=== PATIENT | female | born 1955 | race Caucasian/White ===

== ENCOUNTER 2017-06-30 11:46 | Day surgery (SDC) | payer OTHER ==
[~2017-06-30] VITALS: Ht 172.7 cm; Wt 103.0 kg
[~2017-06-30 11:46] MED LIST: AMOCLA875 PO; COMBIVENT RESPIM4 GM INH; FOOT CREAM; GABA400 PO; HYDCHL12.5; HYDR1TAB94 PO; MONT10T PO; NAPR500 PO; PRAV20; PSEU120ER PO; [UNRECOGNIZED DRUG - OTHER]
[2017-06-30] MEDS ORDERED: Prilosec2.5 MG (12:36)
[2017-06-30] MEDS ORDERED: LEVSOD50 (12:37)
[2017-06-30] MEDS ORDERED: BUDE6HFA (12:38)
[2017-06-30] MEDS ORDERED: Coq-1030 MG (12:39)
== END 2017-06-30 15:30 | disposition home or self-care (01) ==
LOC: ORSCSDS 11:46
PROVIDERS: Internal Medicine Gastroenterology
PROC: 0DB58ZX Excision of Esophagus, Via Natural or Artificial Opening Endoscopic, Diagnostic (ICD-10-PCS; principal; 2017-06-30 14:15)
PROC: 0DBH8ZX Excision of Cecum, Via Natural or Artificial Opening Endoscopic, Diagnostic (ICD-10-PCS; principal; 2017-06-30 14:15)
PROC: 0DBM8ZX Excision of Descending Colon, Via Natural or Artificial Opening Endoscopic, Diagnostic (ICD-10-PCS; principal; 2017-06-30 14:15)
PROC: 0DBN8ZX Excision of Sigmoid Colon, Via Natural or Artificial Opening Endoscopic, Diagnostic (ICD-10-PCS; principal; 2017-06-30 14:15)
PROC: 0DB68ZX Excision of Stomach, Via Natural or Artificial Opening Endoscopic, Diagnostic (ICD-10-PCS; principal; 2017-06-30 14:15)
PROC: 0DBL8ZX Excision of Transverse Colon, Via Natural or Artificial Opening Endoscopic, Diagnostic (ICD-10-PCS; principal; 2017-06-30 14:15)
PROC: 0D758ZZ Dilation of Esophagus, Via Natural or Artificial Opening Endoscopic (ICD-10-PCS; principal; 2017-06-30 14:15)
PROC: 0DBK8ZX Excision of Ascending Colon, Via Natural or Artificial Opening Endoscopic, Diagnostic (ICD-10-PCS; principal; 2017-06-30 14:15)
PROC: 0DBP8ZX Excision of Rectum, Via Natural or Artificial Opening Endoscopic, Diagnostic (ICD-10-PCS; principal; 2017-06-30 14:15)
DX: K21.9 Gastro-esophageal reflux disease without esophagitis (principal); R13.10 Dysphagia, unspecified; K29.70 Gastritis, unspecified, without bleeding; Z86.010 Personal history of colon polyps; K59.00 Constipation, unspecified; D12.2 Benign neoplasm of ascending colon; D12.0 Benign neoplasm of cecum; D12.3 Benign neoplasm of transverse colon; K63.5 Polyp of colon; K62.1 Rectal polyp; K57.30 Diverticulosis of large intestine without perforation or abscess without bleeding; K64.8 Other hemorrhoids; K64.4 Residual hemorrhoidal skin tags; J44.9 Chronic obstructive pulmonary disease, unspecified; Z87.891 Personal history of nicotine dependence; K63.89 Other specified diseases of intestine
CPT/HCPCS: 88305; 88342

== ENCOUNTER → 2018-04-11 | Outpatient (CLI) | payer OTHER ==
[~2018-04-11] MED LIST changes: +BUDE6HFA; +Coq-1030 MG; +LEVSOD50; +Prilosec2.5 MG
== END | disposition home or self-care (01) ==
LOC: LAB SHORT 12:20 → LAB 12:20
DX: R82.998 Other abnormal findings in urine (principal)
CPT/HCPCS: 87077; 87086; 87186

== ENCOUNTER → 2018-10-10 | Outpatient (CLI) | payer OTHER ==
[~2018-10-10] MED LIST changes: +ACETAMINOPHEN-1 EACH PO; +B Complex #11 EACH PO; +BUDE6HFA INH; +CALCIUM + D3 E1 EACH PO; +CLARITIN10 MG PO; +Coq-10100 MG PO; +FOLI400 PO; +Fish Oil 10001000 MG PO; +GABA300 PO; +GLUCOSAMINE HC500 MG PO; +HYDCHL12.5 PO; +IBUP600 PO; +INCRUSE ELLI62.5 MCG INH; +LEVSOD25 PO; +METCAR500 PO; +Omeprazole20 M1 PO; +PRAV20 PO; +PROBIOTIC250 MG PO; +Super Calcium600 MG PO; +VITAMIN D31000 UNIT PO; +Women's Daily1 EACH PO
== END | disposition home or self-care (01) ==
LOC: LAB 12:44 → LAB SHORT 12:44
DX: N39.0 Urinary tract infection, site not specified (principal)
CPT/HCPCS: 87077; 87086; 87186

== ENCOUNTER 2019-04-16 20:12 | Emergency (ER) | payer OTHER ==
[~2019-04-16] VITALS: Ht 172.7 cm; Wt 104.3 kg
[2019-04-16] MEDS ORDERED: Zithromax250 MG PO (21:29)
== END 2019-04-16 21:57 | disposition home or self-care (01) ==
LOC: ER 20:12
DX: J18.9 Pneumonia, unspecified organism (principal); J44.9 Chronic obstructive pulmonary disease, unspecified; Z91.09 Other allergy status, other than to drugs and biological substances; Z79.899 Other long term (current) drug therapy; Z87.891 Personal history of nicotine dependence
CPT/HCPCS: 71046; 87081; 87430; 96372; 99283-25; J0696

== ENCOUNTER 2020-01-10 11:10 | Day surgery (SDC) | payer OTHER ==
[~2020-01-10] VITALS: Ht 170.2 cm; Wt 99.6 kg
[~2020-01-10 11:10] MED LIST changes: +ALBU8HFA2 INH; +BENZ100A PO; +CALCIUM 600 +1 EA11 PO; +COMBIVENT RESPIM4 G1; +INCRUSE ELLIPTA INH; +OMEP20ER PO; +PSEUDOEPHEDRINE30 MG PO; +Robaxin750 MG PO; +SYMBICORT 160-4.6 GM; +TUMERIC; +Zithromax250 MG PO
== END 2020-01-10 14:25 | disposition home or self-care (01) ==
LOC: ORSCSDS 11:10
DX: Z86.010 Personal history of colon polyps (principal); D12.3 Benign neoplasm of transverse colon; D12.2 Benign neoplasm of ascending colon; K63.5 Polyp of colon; K62.1 Rectal polyp; K57.30 Diverticulosis of large intestine without perforation or abscess without bleeding; K64.8 Other hemorrhoids; K63.89 Other specified diseases of intestine; J44.9 Chronic obstructive pulmonary disease, unspecified; Z87.891 Personal history of nicotine dependence; E78.5 Hyperlipidemia, unspecified; E03.9 Hypothyroidism, unspecified; E66.01 Morbid (severe) obesity due to excess calories; Z68.36 Body mass index [BMI] 36.0-36.9, adult; Z79.899 Other long term (current) drug therapy
CPT/HCPCS: 88305; J2704; J7120

== ENCOUNTER 2021-02-12 10:45 | Day surgery (SDC) | payer OTHER ==
[~2021-02-12] VITALS: Ht 170.2 cm; Wt 106.7 kg
[2021-02-12] MEDS ORDERED: ROSU10TA (11:20)
== END 2021-02-12 13:00 | disposition home or self-care (01) ==
LOC: ORSCSDS 10:45
DX: Z12.11 Encounter for screening for malignant neoplasm of colon (principal); Z86.010 Personal history of colon polyps; D12.3 Benign neoplasm of transverse colon; D12.0 Benign neoplasm of cecum; D12.5 Benign neoplasm of sigmoid colon; D12.8 Benign neoplasm of rectum; K57.30 Diverticulosis of large intestine without perforation or abscess without bleeding; K63.89 Other specified diseases of intestine; K64.4 Residual hemorrhoidal skin tags; I10 Essential (primary) hypertension; J44.9 Chronic obstructive pulmonary disease, unspecified; Z87.891 Personal history of nicotine dependence; E78.5 Hyperlipidemia, unspecified; E03.9 Hypothyroidism, unspecified; Z79.899 Other long term (current) drug therapy
CPT/HCPCS: 88305; J2704; J7120

== ENCOUNTER → 2021-06-08 | Outpatient (CLI) | payer OTHER ==
[~2021-06-08] MED LIST changes: +ROSU10TA
== END | disposition home or self-care (01) ==
LOC: LAB SHORT 10:50 → LAB 10:50
DX: N39.0 Urinary tract infection, site not specified (principal)
CPT/HCPCS: 87077; 87086; 87186

== ENCOUNTER → 2021-11-22 | Outpatient (CLI) | payer OTHER | END | disposition home or self-care (01) | LOC: PLD 11:08 → LAB SHORT 11:08 → LAB 11:08 | DX: D22.72 Melanocytic nevi of left lower limb, including hip (principal); D22.0 Melanocytic nevi of lip | CPT/HCPCS: 88305 ==

== ENCOUNTER → 2021-11-25 | Outpatient (CLI) | payer OTHER | END | disposition home or self-care (01) | LOC: LAB SHORT 15:46 → LAB 15:46 | DX: R30.0 Dysuria (principal) | CPT/HCPCS: 87077; 87086; 87186 ==

== ENCOUNTER → 2022-10-24 | Outpatient (CLI) | payer MEDICARE ==
[2022-10-24 12:58] LABS: BASOPHILS ABSOLUTE AUTO 0.03 K/mm3 (0.00-0.23); BASOPHILS PERCENT AUTO 1 % (0-2); EOSINOPHILS ABSOLUTE AUTO 0.09 K/mm3 (0.00-0.68); EOSINOPHILS PERCENT AUTO 1 % (0-6); Hematocrit 43.9 % (33.0-51.0); Hemoglobin 14.3 g/dL (11.5-16.0); IMMATURE GRAN ABSOLUTE AUTO 0.02 K/mm3 (0.00-0.10); IMMATURE GRAN PERCENT AUTO 0 % (0-1); LYMPHOCYTES ABSOLUTE AUTO 1.53 K/mm3 (0.84-5.20); LYMPHOCYTES PERCENT AUTO 24 % (21-46); MONOCYTES ABSOLUTE AUTO 0.59 K/mm3 (0.16-1.47); MONOCYTES PERCENT AUTO 9 % (4-13); Mean Corpuscular HGB 30.8 pg (26.0-34.0); Mean Corpuscular HGB Conc 32.6 g/dL (31.5-36.5); Mean Corpuscular Volume 94 fL (80-100); NEUTROPHILS ABSOLUTE AUTO 4.02 K/mm3 (1.96-9.15); NEUTROPHILS PERCENT AUTO 64 % (41-73); Platelet Count 331 K/mm3 (150-400); RDW Coefficient Variation 14.1 % (11.7-14.2); Red Blood Cell Count 4.65 M/mm3 (3.80-5.20); White Blood Cell Count 6.28 K/mm3 (4.00-11.30)
[2022-10-24 14:24] LABS: Alanine Aminotransfer (ALT/SGP 40 U/L (12-78); Albumin, Blood 4.1 g/dL (3.4-5.0); Albumin/Globulin Ratio 1.4 (0.8-1.8); Alk Phos 59 U/L (50-136); Anion Gap 8 mmol/L (6-16); Aspartate Aminotrans (AST/SGOT 27 U/L (12-37); Bilirubin, Total 0.3 mg/dL (0.1-1.0); Blood Urea Nitrogen 15 mg/dL (8-24); Bun/Creatinine Ratio 12.2 (12.0-20.0); CHOL/HDL RATIO 2.5; CO2, Blood 29 mmol/L (21-32); Calcium, Blood 10.3 mg/dL (8.5-10.1); Chloride, Blood 103 mmol/L (98-108); Cholesterol 153 mg/dL (50-200); Creatinine, Blood 1.23 mg/dL (0.40-1.00); Globulin, Blood 2.9 g/dL (2.2-4.0); Glomerular Filtration Rate 49 (60-); Glucose, Blood 108 mg/dL (70-99); HDL Cholesterol 62 mg/dL (>39); LDL/HDL RATIO 1.2; Low Density Lipoprotein Chol 76 mg/dL (0-110); Potassium, Blood 4.3 mmol/L (3.5-5.5); Sodium, Blood 140 mmol/L (136-145); Triglycerides 74 mg/dL (30-160); Very Low Density Lipoprot Chol 14 mg/dL (6-32)
[2022-10-25 07:21] LABS: HEMOGLOBIN A1C 5.7 % (4.8-5.6)
== END ==
LOC: LAB 09:25 → LAB SHORT 09:25
PROVIDERS: Hospitalist
DX: E78.49 Other hyperlipidemia (principal); R68.82 Decreased libido; R73.03 Prediabetes; Z78.0 Asymptomatic menopausal state
CPT/HCPCS: 80053; 80061; 82670; 83036; 85025

== ENCOUNTER → 2023-04-18 | Outpatient (CLI) | payer MEDICARE | END | disposition home or self-care (01) | LOC: LAB SHORT 15:23 → LAB 15:23 | DX: N39.0 Urinary tract infection, site not specified (principal) | CPT/HCPCS: 87077; 87086; 87186 ==

== ENCOUNTER → 2024-01-12 | Outpatient (CLI) | payer MEDICARE ==
[~2024-01-12] MED LIST changes: +ALDACTONE100 MG; +FISH OIL 1,0001 EA10; +Hair, Skin & N1 EACH; +Robaxin750 MG; +TACR1
[2024-01-21 15:41] LABS: HPV HIGH RISK BY TMA Not Detected; HPV SOURCE Cervical/Vag
== END | disposition home or self-care (01) ==
LOC: LAB 17:31 → LAB SHORT 17:31
PROVIDERS: Obstetrics & Gynecology
DX: Z01.419 Encounter for gynecological examination (general) (routine) without abnormal findings (principal)
CPT/HCPCS: 87624; G0123

== ENCOUNTER 2024-07-23 13:33 | Day surgery (SDC) | payer MEDICARE ==
[~2024-07-23] VITALS: Ht 170.2 cm; Wt 87.8 kg
[~2024-07-23 13:33] MED LIST changes: +Lidocaine 2% 5 ML SDV ONE; +Lidocaine HCl/Pf 1% 5 ML VIAL ONE
[2024-07-23] MEDS ORDERED: ASPI81CH PO (13:59)
[2024-07-23] MEDS ORDERED: CO Q10100 MG (13:59)
[2024-07-23] MEDS ORDERED: GLUC500 PO (14:00)
[2024-07-23] MEDS ORDERED: POTASSIUM GLUCO90 M1 PO (14:02)
[2024-07-23] MEDS ORDERED: MAGNESIUM OXID500 MG (14:02)
[2024-07-23] MEDS ORDERED: Lactated Ringer's 1,000 ML IV ONE (14:26)
[2024-07-23] MEDS ORDERED: propofoL 50 ML IV ONE (14:41)
[2024-07-23 15:43] VITALS: BP 115/67
== END 2024-07-23 15:53 | disposition home or self-care (01) ==
LOC: ORSCSDS 13:33
PROVIDERS: Specialist
PROC: 0DBK8ZX Excision of Ascending Colon, Via Natural or Artificial Opening Endoscopic, Diagnostic (ICD-10-PCS; principal; 2024-07-23 15:00)
DX: Z12.11 Encounter for screening for malignant neoplasm of colon (principal); Z86.0100 Personal history of colon polyps, unspecified; D12.2 Benign neoplasm of ascending colon; K63.89 Other specified diseases of intestine; K57.30 Diverticulosis of large intestine without perforation or abscess without bleeding; K64.8 Other hemorrhoids; I25.10 Atherosclerotic heart disease of native coronary artery without angina pectoris; I10 Essential (primary) hypertension; E78.2 Mixed hyperlipidemia; D86.0 Sarcoidosis of lung; J44.9 Chronic obstructive pulmonary disease, unspecified; Z79.899 Other long term (current) drug therapy; Z87.891 Personal history of nicotine dependence
CPT/HCPCS: 88305; J2003; J2704

== ENCOUNTER 2024-10-01 06:13 | Day surgery (SDC) | payer MEDICARE ==
[~2024-10-01] VITALS: Ht 170.2 cm; Wt 89.3 kg
[~2024-10-01 06:13] MED LIST changes: +ACET500 PO; -ALDACTONE100 MG; +ALDACTONE100 MG PO; +ANORO ELLIPTA1 EACH INH; +ASPI81CH PO; +C COMPLEX1000 M1 PO; +CELE200 PO; +CO Q10100 MG; +CeFAZolin Sodium 2,000 MG VIAL ONE; +Coenzyme Q1050 MG PO; +FOLIC ACID PO; +GLUC500 PO; +GLUCOSAMINE COMPLEX PO; -Lidocaine 2% 5 ML SDV ONE; -Lidocaine HCl/Pf 1% 5 ML VIAL ONE; +MAGNESIUM OXID500 MG; +METAMUCIL PO; +Methocarbamol500 MG PO; +POTASSIUM GLUCO90 M1 PO; +POTASSIUM GLUCONATE PO; +PSEUDOEPHEDRINE30 M1 PO; +ROSUVASTATIN CAL5 MG PO; +Tranexamic Acid 100 ML IV ONE; +VITAMIN D350 MC3 PO; +VITAMIN E134 M1 PO; +Vitamin B Comple1 EA PO; +XYZAL5 MG PO; +ZINC PO; +[UNRECOGNIZED DRUG - OTHER] PO
[2024-10-01] MEDS ORDERED: REMIFEMIN (06:42)
[2024-10-01] MEDS ORDERED: SYSTANE 0.4-0.315 ML OP (06:43)
[2024-10-01] MEDS ORDERED: Midazolam HCl 1MG / ML 2ML Vial ONE (07:12)
[2024-10-01] MEDS ORDERED: FentaNYL Citrate 50 MCG/ML 2 ML Injection ONE (07:13)
[2024-10-01] MEDS ORDERED: Bupivacaine 0.5% W/EPI 1:200000 SDV 30 ML Vial ONE (07:13)
[2024-10-01] MEDS ORDERED: Rocuronium Bromide 10 MG/ML 5ML Injection IV ONE (07:30)
--- NOTE | 2024-10-01 07:30 | NUR ---
10/01/24 0730 Rai Hanson TIME OUT 0719: ANESTHESIA MO PERFORMS NERVE BLOCK. PT TOLERATED WELL. START TIME FOR NERVE BLOCK AT 07 AND END TIME AT 07.
[2024-10-01] MEDS ORDERED: Phenylephrine HCl 100 MCG/ML-NS 10MLSYR (1MG/10ML) ONE (07:35)
[2024-10-01] MEDS ORDERED: Ondansetron HCl 2 MG / ML 2ML Vial ONE (07:41)
[2024-10-01] MEDS ORDERED: Dexamethasone Sod Phos 10 MG/ML 1ML VIAL ONE (07:41)
--- NOTE | 2024-10-01 07:55 | NUR ---
10/01/24 0755 Tj Jackson TXA 1 GM IV, STARTED IN OR AT 0740 BY SANDER BLANTON.
[2024-10-01] MEDS ORDERED: Sugammadex Sodium 200 MG/2ML SDV (100 MG/ML) ONE (09:26)
--- NOTE | 2024-10-01 09:52 | NUR ---
10/01/24 0952 DEREK PETERS PT CAME OUT OF OR ON 15L NON-REBREATHER. DECREASED O2 TO 10L. CURRENTLY 99% WILL TRIAL ON 6L
[2024-10-01 10:06] VITALS: BP 113/65
--- NOTE | 2024-10-01 10:12 | NUR ---
10/01/24 1012 DEREK PETERS REPORT GIVEN TO MICHELA CARLISLE RN
== END 2024-10-01 11:42 | disposition home or self-care (01) ==
LOC: ORSCSDS 06:13
PROVIDERS: Orthopaedic Surgery Sports Medicine
PROC: 0R5J4ZZ Destruction of Right Shoulder Joint, Percutaneous Endoscopic Approach (ICD-10-PCS; principal; 2024-10-01 07:30)
PROC: 0RNJ4ZZ Release Right Shoulder Joint, Percutaneous Endoscopic Approach (ICD-10-PCS; principal; 2024-10-01 07:30)
PROC: 0LM14ZZ Reattachment of Right Shoulder Tendon, Percutaneous Endoscopic Approach (ICD-10-PCS; principal; 2024-10-01 07:30)
DX: M75.111 Incomplete rotator cuff tear or rupture of right shoulder, not specified as traumatic (principal); I12.9 Hypertensive chronic kidney disease with stage 1 through stage 4 chronic kidney disease, or unspecified chronic kidney disease; N18.9 Chronic kidney disease, unspecified; Z79.899 Other long term (current) drug therapy
CPT/HCPCS: C1713; J0165; J0690; J1100; J2250; J2371; J2405; J2704; J3010; J7120

== ENCOUNTER 2024-12-18 15:34 | Day surgery (SDC) | payer MEDICARE ==
[~2024-12-18 15:34] MED LIST changes: -CeFAZolin Sodium 2,000 MG VIAL ONE; +REMIFEMIN; +SYSTANE 0.4-0.315 ML OP; -Tranexamic Acid 100 ML IV ONE
== END 2024-12-18 23:00 | disposition home or self-care (01) ==
LOC: CT 15:34
DX: D86.0 Sarcoidosis of lung (principal); J43.9 Emphysema, unspecified
CPT/HCPCS: 71250